=== PATIENT | male | born 1965 | race Caucasian/White ===

== ENCOUNTER 2017-07-11 14:15 | Emergency (ER) | payer BC, OTHER ==
[~2017-07-11] VITALS: Ht 182.9 cm; Wt 90.7 kg
--- NOTE | ~2017-07-11 | CR141 ---
[facility] A Service of [facility] RADIOLOGY TEXT RESULTS PATIENT: LUZMARIA VERA LOCATION: CFTX : 61 UNIT #: [id number] AGE: [address]: Lety Harrell APRN SEX: M ORDER DR: [id number] [facility] [address] [facility]. [place], [place] [address] [id number] E MR#: [id number] Acc #: [id number] NAME: LUZMARIA VERA : 1965 SEX: M STUDY DATE/TIME: 07/11/2017 14:48 UNIT: [facility] ROOM: STUDY DESCRIPTION: CR Hand Min 3 Views Lt Attending Physician: Lety Harrell A.P.R.N. Referring Physician: eGraldo Garcia M.D. Ordering Physician: Greg Barbosa M.D. Primary Care Physician: Pari John MEDICAL IMAGING REPORT This report is preliminary unless electronic signature is present EXAMINATION Three views, left hand. DATE 07/11/2017 HISTORY Nail gun injury today in the right hand. Pain. COMPARISON None. FINDINGS An 8.5 cm length nail is seen within the left hand, appears interposed between the first and second metacarpal bones, thought most likely to be within the soft tissues themselves, but no definite traversement of the bony structures is identified, based upon orientation of the nail on the submitted images. There is an additional 4 mm retained radiopaque foreign body in the soft tissues at the radial and posterior margin of the proximal aspect of the proximal phalanx of the left second finger. No acute fracture or joint dislocation is identified. IMPRESSION 1. Greater than 8 cm nail is embedded within the left hand. It appears to be in the soft tissues interposed between the first and second metacarpals, but no definite bony traversement is appreciated based upon the orientation of the current study. 2. 4 mm retained radiopaque foreign body adjacent to the proximal and radial-posterior aspect of the proximal phalanx of the left second finger. [facility] A Service [facility] RADIOLOGY TEXT RESULTS PATIENT: LUZMARIA VERA LOCATION: [facility] : 61 UNIT #: [id number] AGE: [address]: Lety Harrell APRN SEX: M ORDER DR: Dictated by... Stephie Sweeney M.D. THIS IS AN ELECTRONICALLY VERIFIED REPORT Stephie Sweeney M.D. at 07/12/2017 2:02 PM GEGE/morgan TD: 07/11/2017 19:08 JOB #: [id number] MEDICAL IMAGING REPORT Page 1 of 1 COPY
[~2017-07-11 14:15] MED LIST: ALBUTEROL17 GM INH; CIPRO PO; DICLOFENAC PO; FLEXERIL PO; FLOMAX0.4 MG PO; LORTAB 7.5-5001 TAB PO; PERCOCET PO; PERCOCET5/325 PO; PRILOSEC20 M1 PO; PYRIDIUM PO; VICODIN 5/500 T1 TAB PO
== END 2017-07-11 17:00 | disposition home or self-care (01) ==
LOC: CFTX 14:15 → CED 14:15 → CFTX 14:39
DX: S61.442A Puncture wound with foreign body of left hand, initial encounter (principal); F17.200 Nicotine dependence, unspecified, uncomplicated; W34.09XA Accidental discharge from other specified firearms, initial encounter; Y92.009 Unspecified place in unspecified non-institutional (private) residence as the place of occurrence of the external cause; Z23 Encounter for immunization
CPT/HCPCS: 29280; 73130; 90471; 90715; 96372; 99283; J0690; J2270